=== PATIENT | female | born 1965 | race Caucasian/White ===

== ENCOUNTER 2020-07-26 22:58 | Emergency (ER) | payer MEDICARE, SELFPAY ==
--- NOTE | ~2020-07-26 | XR_ITS ---
EXAMINATION: XR toe 2nd RT min 2V EXAM DATE: 07/26/2020 23:34 INDICATION: Initial encounter following injury, with pain of the right 2nd toe. TECHNIQUE: Right 2nd toe frontal, lateral and oblique projections obtained and reviewed. There is no prior study for comparison. FINDINGS: There are no acute right 2nd toe fractures or dislocations identified. There is no subcuta neous gas. The soft tissue is unremarkable. There are no radiopaque foreign bodies. 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 IMPRESSION: No acute osseous findings. Reviewed, dictated and finalized at location A. IMPRESSION: No acute osseous findings.
[2020-07-26 23:08] VITALS: BP 132/82; PULSE 75; RESP 20; TEMP 36.5; O2SAT 100
--- NOTE | 2020-07-26 23:26 | PC.NURSE ---
Patient taken to xray at this time.
--- NOTE | 2020-07-26 23:36 | ED.GENADULT ---
HPI - General Adult General Chief complaint: Extremity Problem,Nontraumatic Stated complaint: fall Time Seen by Provider: 07/26/20 23:25 Source: RN notes reviewed History of Present Illness HPI narrative: Patient presents emergency department from home for right second toe pain. Patient states approximately 6 PM she was walking in flip-flops when she slipped and stubbed her toe into the concrete states that she initially got home and gone to sleep and when she awoken she had increased pain in the toe states pain is located in the mid second toe she denies any other trauma or injury denies falling or striking her head states she is taking nothing for pain Related Data Home Medications Medication Instructions Recorded Confirmed Adult One Daily Multivitamin 02/19/19 Fish Oil 02/19/19 Vitamin D3 02/19/19 acyclovir 02/19/19 albuterol sulfate [ProAir HFA] INHALATION 02/19/19 alprazolam 02/19/19 amitriptyline 02/19/19 aspirin 81 mg DAILY 02/19/19 02/19/19 atenolol 02/19/19 cyclobenzaprine mg 02/19/19 cyproheptadine 02/19/19 famotidine 02/19/19 hydrochlorothiazide 02/19/19 lisinopril 02/19/19 mecobalamin (vitamin B12) 02/19/19 mycophenolate sodium PO 02/19/19 prednisone 02/19/19 simvastatin mg 02/19/19 tacrolimus [Envarsus XR] PO 02/19/19 zolpidem PO 02/19/19 Allergies Allergy/AdvReac Type Severity Reaction Status Date / Time aspirin Allergy Mild Unknown Verified 07/26/20 23:19 morphine Allergy Unknown Unknown Verified 07/26/20 23:19 Sulfa (Sulfonamide Allergy Unknown Unknown Verified 07/26/20 23:19 Antibiotics) hydromorphone AdvReac Mild VOMITING Verified 07/26/20 23:19 COLD WEATHER AdvReac Unknown URTICARIA Uncoded 02/19/19 14:34 Review of Systems Review of Systems: Narrative: Gen.: Denies fevers or chills Musculoskeletal: See HPI Neuro: Denies numbness, tingling, weakness Skin: Denies rash Endo: Denies DM PMFSH Surgical History Surgical History (Updated 07/26/20 @ 23:37 by Favio Mitchell DO) Kidney transplant status Social History Social History (Updated 07/26/20 @ 23:37 by Favio Mitchell DO) Smoking status: Never smoker Gender identity (if verbalized by the patient): Female Exam Narrative: Exam Narrative: APPEARANCE: No acute distress, nontoxic, resting in bed Eyes: EOMI HEENT: Normocephalic, atraumatic, RESPIRATORY: No respiratory distress MUSCULOSKELETAl: Turn palpation over the right second toe over the PIP joint mild swelling ecchymosis no tenderness of toes 1, 3, 4, and 5 no tenderness in any of the foot, dorsalis pedis pulse 2+ neurovascular intact capillary refill less than 3 seconds NEURO: Awake and alert. Following commands, speech normal, no focal deficits SKIN:: Warm, dry. Normal Color no rash or lesions Course Course Emergency Course: Discussed with patient results of workup and diagnosis. Discussed need for follow-up with primary care, proper use of medication, and reasons to return to the emergency department. Patient understands and agrees to current treatment plan Vital Signs Vital signs: Vital Signs Temperature 97.7 F 07/26/20 23:08 Pulse Rate 75 07/26/20 23:08 Respiratory Rate 07/26/20 23:08 Blood Pressure 132/82 07/26/20 23:08 Pulse Oximetry 100 07/26/20 23:08 Temperature 97.7 F 07/26/20 23:08 Pulse Rate 75 07/26/20 23:08 Respiratory Rate 07/26/20 23:08 Blood Pressure 132/82 07/26/20 23:08 Pulse Oximetry 100 07/26/20 23:08 Medical Decision Making Vital Signs Vital Signs: Vital Signs Temperature 97.7 F 07/26/20 23:08 Pulse Rate 75 07/26/20 23:08 Respiratory Rate 07/26/20 23:08 Blood Pressure 132/82 07/26/20 23:08 Pulse Oximetry 100 07/26/20 23:08 Temperature 97.7 F 07/26/20 23:08 Pulse Rate 75 07/26/20 23:08 Respiratory Rate 20 07/26/20 23:08 Blood Pressure 132/82 07/26/20 23:08 Pulse Oximetry 100 07/26/20 23:08 Imaging Data Attestatio
[2020-07-26] MEDS: ACETAMINOPHEN 500 MG TABLET 1000 MG PO (23:41)
== END 2020-07-26 23:52 | disposition home or self-care (01) ==
LOC: ANHED 23:48
PROVIDERS: Emergency Provider Emergency Medicine
DX: S93.504A Unspecified sprain of right lesser toe(s), initial encounter (principal); Z79.82 Long term (current) use of aspirin; Z94.0 Kidney transplant status; W22.8XXA Striking against or struck by other objects, initial encounter
CPT/HCPCS: 73660; 99283; A9270

== ENCOUNTER 2021-10-04 13:28 | Emergency (ER) | payer MEDICARE, SELFPAY ==
--- NOTE | ~2021-10-04 | XR_ITS ---
XR foot RT min 3V 10/04/2021 15:17 Indication: Right foot pain after injury Procedure: 4 views right foot Comparison: No prior studies for comparison. Findings: There are avulsion fractures involving the lateral margin of the calcaneus and the proximal aspect of the fifth metatarsal. Mild soft tissue swelling. Lisfranc joint intact. No other fracture. Impression: 1: Minimally displaced avulsion fractures lateral margin of the calcaneus and the proximal aspect of the fifth metatarsal. Reviewed, dictated and finalized at location A. Impression: 1: Minimally displaced avulsion fractures lateral margin of the calcaneus and t he proximal aspect of the fifth metatarsal.
--- NOTE | ~2021-10-04 | XR_ITS ---
XR ankle RT min 3V 10/04/2021 15:18 Indication: Right ankle pain after injury Procedure: 4 views right ankle Comparison: No prior studies for comparison. Findings: There is an avulsion fracture with soft tissue swelling along the lateral aspect of the anupam t on AP view, possibly originating from the calcaneus or cuboid. Ankle mortise intact. There are dege nerative calcaneal enthesophytes. Impression: 1: Avulsion fracture lateral aspect of the right foot, possibly originating from the calcaneus or cub oid. Reviewed, dictated and finalized at location A. Impression: 1: Avulsion fracture lateral aspect of the right foot, possibly originating fro m the calcaneus or cuboid.
--- NOTE | 2021-10-04 13:37 | ED.LOWEXIN ---
HPI - Extremity Injury (Lower) General Chief Complaint: Extremity Injury, Lower <Mason Andino APRN - Last Filed: 10/04/21 16:27> Stated Complaint: rt foot pain <Mason Andino APRN - Last Filed: 10/04/21 16:27> Time Seen by Provider: 10/04/21 14:10 <Mason Andino APRN - Last Filed: 10/04/21 16:27> Source: patient <Mason Andino APRN - Last Filed: 10/04/21 16:27> Mode of arrival: ambulatory <Mason Andino APRN - Last Filed: 10/04/21 16:27> Limitations: no limitations <Mason Andino APRN - Last Filed: 10/04/21 16:27> History of Present Illness HPI Narrative: Ms. Adair is a 56-year-old female patient presenting to the clinic today with complaints of right foot and ankle pain since 0100 this morning. She reports that she got up out of bed quickly and ended up inverting her right ankle/foot has bruising and swelling to the right ankle and foot. Reports that it is very painful to bear weight. <Mason Andino APRN - Last Filed: 10/04/21 16:27> Related Data Home Medications: Home Medications Medication Instructions Recorded Confirmed Adult One Daily Multivitamin 02/19/19 Fish Oil 02/19/19 Vitamin D3 02/19/19 acyclovir 200 mg capsule 02/19/19 albuterol sulfate 90 mcg/actuation inhalation 02/19/19 aerosol inhaler (ProAir HFA) alprazolam 0.5 mg tablet 02/19/19 amitriptyline 25 mg tablet 02/19/19 aspirin 81 mg DAILY 02/19/19 02/19/19 atenolol 50 mg tablet 02/19/19 cyclobenzaprine 10 mg tablet mg 02/19/19 cyproheptadine 4 mg tablet 02/19/19 famotidine 20 mg tablet 02/19/19 hydrochlorothiazide 12.5 mg tablet 02/19/19 lisinopril 5 mg tablet 12/30/19 mecobalamin (vitamin B12) 02/19/19 mycophenolate sodium 360 mg PO 02/19/19 tablet,delayed release prednisone 2.5 mg tablet 02/19/19 simvastatin 40 mg tablet mg 02/19/19 tacrolimus 1 mg tablet,extended PO 02/19/19 release 24 hr (Envarsus XR) zolpidem 12.5 mg tablet,extended PO 02/19/19 release,multiphase allopurinol 300 mg tablet mg 10/04/21 gabapentin 300 mg capsule mg 10/04/21 <Mason Andino APRN - Last Filed: 10/04/21 16:27> Allergies/Adverse Reactions: Allergies Allergy/AdvReac Type Severity Reaction Status Date / Time aspirin Allergy Mild Unknown Verified 08/20/21 13:41 morphine Allergy Unknown Unknown Verified 08/20/21 13:41 Sulfa (Sulfonamide Allergy Unknown Unknown Verified 08/20/21 13:41 Antibiotics) hydromorphone AdvReac Mild VOMITING Verified 08/20/21 13:41 COLD WEATHER AdvReac Unknown URTICARIA Uncoded 08/20/21 13:41 <Mason Andino APRN - Last Filed: 10/04/21 16:27> Review of Systems Review of Systems: Pertinent positives per HPI. Patient denies any fever, chills, rash, headache, visual changes, dizziness, cough, runny nose, sore throat, shortness of breath, chest pain, palpitations, nausea, vomiting, diarrhea, constipation, abdominal pain, or any urinary issues. <Mason Andino APRN - Last Filed: 10/04/21 16:27> [facility] Surgical History Surgical History: Surgical History Kidney transplant status <Mason Andino APRN - Last Filed: 10/04/21 16:27> Social History Social History: Social History Smoking status: Never smoker Gender identity (if verbalized by the patient): Female <Mason Andino APRN - Last Filed: 10/04/21 16:27> Comments At the time of my signature, I reviewed and agree with the nursing past medical, surgical, social, and family history. There is no relevant family history pertinent to the patient complaint. <Mason Andino, CARLEY - Last Filed: 10/04/21 16:27> Exam Narrative: General: Well-developed, well nourished, in no apparent distress Head: Normocephalic, atraumatic. Cardio: Regular r
[2021-10-04 14:06] VITALS: BP 142/79; PULSE 61; RESP 16; TEMP 36.6; O2SAT 100
== END 2021-10-04 16:15 | disposition home or self-care (01) ==
PROVIDERS: Emergency Provider Nurse Practitioner Family
DX: S92.351A Displaced fracture of fifth metatarsal bone, right foot, initial encounter for closed fracture (principal); X50.9XXA Other and unspecified overexertion or strenuous movements or postures, initial encounter; Z94.0 Kidney transplant status; E78.00 Pure hypercholesterolemia, unspecified; I10 Essential (primary) hypertension; K21.9 Gastro-esophageal reflux disease without esophagitis; M10.9 Gout, unspecified; N80.9 Endometriosis, unspecified; M35.9 Systemic involvement of connective tissue, unspecified; Z85.828 Personal history of other malignant neoplasm of skin
CPT/HCPCS: 29515; 73610; 73630; 99214; G0463

== ENCOUNTER 2022-04-26 17:50 | Emergency (ER) | payer MEDICARE, SELFPAY ==
--- NOTE | ~2022-04-26 | XR_ITS ---
EXAM: XR ankle RT min 3V DATE: 04/26/2022 18:22 HISTORY: LATERAL ANKLE PAIN AFTER INJURY . COMPARISON: 10/04/2021. FINDINGS: Normal mineralization. No fracture or dislocation. No lytic or blastic lesion. Scattered d egenerative changes. Achilles and plantar enthesopathy. No erosion or periosteal change. Soft tissues within normal limits. IMPRESSION: No acute osseous finding in the right ankle. Reviewed, dictated and finalized at location K. [employer]ATE ASSISTANT ATHLETIC TRAINER
--- NOTE | 2022-04-26 17:56 | ED.SKABFB ---
HPI - Skin/Abscess/Foreign Bdy General Stated complaint: Right Foot Pain Related Data Home Medications Medication Instructions Recorded Confirmed Adult One Daily Multivitamin 02/19/19 12/17/21 Fish Oil 02/19/19 12/17/21 Vitamin D3 02/19/19 12/17/21 acyclovir 200 mg capsule 02/19/19 12/17/21 albuterol sulfate 90 mcg/actuation inhalation 02/19/19 12/17/21 aerosol inhaler (ProAir HFA) alprazolam 0.5 mg tablet 02/19/19 12/17/21 amitriptyline 25 mg tablet 02/19/19 12/17/21 aspirin 81 mg DAILY 02/19/19 12/17/21 atenolol 50 mg tablet 02/19/19 12/17/21 cyclobenzaprine 10 mg tablet mg 02/19/19 12/17/21 cyproheptadine 4 mg tablet 02/19/19 12/17/21 famotidine 20 mg tablet 02/19/19 12/17/21 hydrochlorothiazide 12.5 mg tablet 02/19/19 12/17/21 lisinopril 5 mg tablet 02/19/19 12/17/21 mecobalamin (vitamin B12) 02/19/19 12/17/21 mycophenolate sodium 360 mg PO 02/19/19 12/17/21 tablet,delayed release prednisone 2.5 mg tablet 02/19/19 12/17/21 simvastatin 40 mg tablet mg 02/19/19 12/17/21 tacrolimus 1 mg tablet,extended PO 02/19/19 12/17/21 release 24 hr (Envarsus XR) zolpidem 12.5 mg tablet,extended PO 02/19/19 12/17/21 release,multiphase allopurinol 300 mg tablet mg 10/04/21 12/17/21 gabapentin 300 mg capsule mg 10/04/21 12/17/21 Allergies Allergy/AdvReac Type Severity Reaction Status Date / Time aspirin Allergy Mild Unknown Verified 10/12/21 15:46 morphine Allergy Unknown Unknown Verified 10/12/21 15:46 Sulfa (Sulfonamide Allergy Unknown Unknown Verified 10/12/21 15:46 Antibiotics) hydromorphone AdvReac Mild VOMITING Verified 10/12/21 15:46 COLD WEATHER AdvReac Unknown URTICARIA Uncoded 10/12/21 15:46 [facility] Surgical History Surgical History Kidney transplant status Social History Social History Smoking status: Never smoker Gender identity (if verbalized by the patient): Female Discharge Plan Discharge Prescriptions: No Action gabapentin 300 mg capsule allopurinol 300 mg tablet acetaminophen-codeine 300-15 mg tablet 1 tablet PO Q8H PRN (Reason: pain) 4 Days Qty: 12 0RF Adult One Daily Multivitamin cyclobenzaprine 10 mg tablet simvastatin 40 mg tablet cyproheptadine 4 mg tablet alprazolam 0.5 mg tablet famotidine 20 mg tablet amitriptyline 25 mg tablet prednisone 2.5 mg tablet lisinopril 5 mg tablet acyclovir 200 mg capsule albuterol sulfate [ProAir HFA] 90 mcg/actuation HFA aerosol inhaler INHALATION atenolol 50 mg tablet mycophenolate sodium 360 mg tablet,delayed release (DR/EC) PO zolpidem 12.5 mg tablet,ext release multiphase PO hydrochlorothiazide 12.5 mg tablet Envarsus XR 1 mg tablet extended release 24 hr PO Fish Oil Vitamin D3 aspirin 81 mg 81 mg DAILY mecobalamin (vitamin B12) Follow-up/Referrals: PHYSICIAN,PEELER OPERATOR [Primary Care Provider] -
--- NOTE | 2022-04-26 17:59 | ED.LOWEXIN ---
HPI - Extremity Injury (Lower) General Chief Complaint: Extremity Injury, Lower Stated Complaint: Right Foot Pain Time Seen by Provider: 04/26/22 18:00 Source: patient, RN notes reviewed and old records reviewed Mode of arrival: ambulatory Limitations: no limitations History of Present Illness HPI Narrative: 56-year-old female presents to the [facility] with right lateral ankle pain since last night. No bruising or swelling noted. Patient states that she was walking and rolled her ankle in firstly. History of a kidney transplant and cannot take ibuprofen so she has taken Tylenol. Onset (ago): day(s) (1) Related Data Home Medications Medication Instructions Recorded Confirmed acyclovir 200 mg capsule 200 mg PO DAILY 02/19/19 04/26/22 albuterol sulfate 90 mcg/actuation 2 puff inhalation PRN PRN SOB 02/19/19 04/26/22 aerosol inhaler (ProAir HFA) alprazolam 0.5 mg tablet 0.5 mg PO DAILY 02/19/19 04/26/22 amitriptyline 25 mg tablet 25 mg PO DAILY 02/19/19 04/26/22 atenolol 50 mg tablet 50 mg PO DAILY 02/19/19 04/26/22 cyclobenzaprine 10 mg tablet 10 mg PO DAILY 02/19/19 04/26/22 cyproheptadine 4 mg tablet 4 mg PO DAILY 02/19/19 04/26/22 famotidine 20 mg tablet 20 mg PO DAILY 02/19/19 04/26/22 hydrochlorothiazide 12.5 mg tablet 12.5 mg PO DAILY 02/19/19 04/26/22 lisinopril 5 mg tablet 5 mg PO DAILY 02/19/19 04/26/22 mycophenolate sodium 360 mg 360 mg PO DAILY 02/19/19 04/26/22 tablet,delayed release prednisone 2.5 mg tablet 2.5 mg PO DAILY 02/19/19 04/26/22 simvastatin 40 mg tablet 40 mg PO DAILY 02/19/19 04/26/22 tacrolimus 1 mg tablet,extended 1 mg PO DAILY 02/19/19 04/26/22 release 24 hr (Envarsus XR) zolpidem 12.5 mg tablet,extended 12.5 mg PO DAILY 02/19/19 04/26/22 release,multiphase allopurinol 300 mg tablet 300 mg PO DAILY 10/04/21 04/26/22 Allergies Allergy/AdvReac Type Severity Reaction Status Date / Time aspirin Allergy Mild Unknown Verified 04/26/22 17:59 morphine Allergy Unknown Unknown Verified 04/26/22 17:59 Sulfa (Sulfonamide Allergy Unknown Unknown Verified 04/26/22 17:59 Antibiotics) hydromorphone AdvReac Mild VOMITING Verified 04/26/22 17:59 COLD WEATHER AdvReac Unknown URTICARIA Uncoded 04/26/22 17:59 Review of Systems Review of Systems: All systems reviewed & are unremarkable except as noted in HPI and below Constitutional: Constitutional: Reports no additional constitutional complaints Eyes: Eyes: Reports no additional eye complaints ENT: Reports system reviewed and no additional complaints, except as documented Cardiovascular: Cardiovascular: Reports no additional cardiovascular complaints, Denies chest pain and Denies dyspnea Respiratory: Respiratory: Reports no additional respiratory complaints, Denies chest congestion, Denies cough and Denies dyspnea Gastrointestinal: Gastrointestinal: Reports no additional gastrointestinal complaints, Denies abdominal pain, Denies nausea and Denies vomiting Musculoskeletal: Musculoskeletal: Reports as per HPI and Reports arthralgias (Right lateral ankle) Integumentary/Breasts: Skin/Breast: Reports system reviewed and no additional complaints, except as docu Neurologic: Reports system reviewed and no additional complaints, except as documented Psychiatric: Psychiatric: Reports no additional psychiatric complaints Allergic/Immunologic: Allergic/Immunologic: Reports no additional allergic/immunologic complaints [facility] Surgical History Surgical History Kidney transplant status Social History Social History Smoking status: Never smoker Gender identity (if verbalized by the patient): Female Comments At the time of my signature, I reviewed and agree with the nursing past medical, surgical, social, and family history. There is no relevant family history pertinent to the patient complaint. Exam Const: General: cooperative, healthy
[2022-04-26 18:00] VITALS: BP 155/89; PULSE 85; RESP 14; TEMP 36.8; O2SAT 100
[2022-04-26 18:02] VITALS: BP 155/89; PULSE 85; RESP 14; TEMP 36.8; O2SAT 100
== END 2022-04-26 19:10 | disposition home or self-care (01) ==
PROVIDERS: Emergency Provider Nurse Practitioner
DX: S93.401A Sprain of unspecified ligament of right ankle, initial encounter (principal); X50.0XXA Overexertion from strenuous movement or load, initial encounter
CPT/HCPCS: 73610; 99213; G0463

== ENCOUNTER 2022-05-22 17:02 | Emergency (ER) | payer MEDICARE, SELFPAY ==
[2022-05-22 17:13] VITALS: BP 128/77; PULSE 72; RESP 16; TEMP 36.9; O2SAT 99
[2022-05-22 17:14] VITALS: BP 128/77; PULSE 72; RESP 16; TEMP 36.9; O2SAT 99
--- NOTE | 2022-05-22 17:40 | ED.UPPEXIN ---
HPI - Extremity Injury (Upper) General Chief Complaint: Extremity Injury, Upper Stated Complaint: Left Hand Pain Source: patient and RN notes reviewed History of Present Illness HPI narrative: 56-year-old male presents to urgent care with complaints of a splinter to her left middle finger tip. Patient states she obtained this prior to arrival while cleaning out a hoarder's house. Patient states they tried removing the splinter for approximately 30 minutes without relief. Patient states she believes her tetanus is up-to-date. Patient has no other complaints. Some parts of this dictation were generated by voice recognition software and may contain typographical and/or grammatical inaccuracies. Related Data Home Medications Medication Instructions Recorded Confirmed acyclovir 200 mg capsule 200 mg PO DAILY 02/19/19 05/22/22 albuterol sulfate 90 mcg/actuation 2 puff inhalation PRN PRN SOB 02/19/19 05/22/22 aerosol inhaler (ProAir HFA) alprazolam 0.5 mg tablet 0.5 mg PO DAILY 02/19/19 05/22/22 amitriptyline 25 mg tablet 25 mg PO DAILY 02/19/19 05/22/22 atenolol 50 mg tablet 50 mg PO DAILY 02/19/19 05/22/22 cyclobenzaprine 10 mg tablet 10 mg PO DAILY 02/19/19 05/22/22 cyproheptadine 4 mg tablet 4 mg PO DAILY 02/19/19 05/22/22 famotidine 20 mg tablet 20 mg PO DAILY 02/19/19 05/22/22 hydrochlorothiazide 12.5 mg tablet 12.5 mg PO DAILY 02/19/19 05/22/22 lisinopril 5 mg tablet 5 mg PO DAILY 02/19/19 05/22/22 mycophenolate sodium 360 mg 360 mg PO DAILY 02/19/19 05/22/22 tablet,delayed release prednisone 2.5 mg tablet 2.5 mg PO DAILY 02/19/19 05/22/22 simvastatin 40 mg tablet 40 mg PO DAILY 02/19/19 05/22/22 tacrolimus 1 mg tablet,extended 1 mg PO DAILY 02/19/19 05/22/22 release 24 hr (Envarsus XR) zolpidem 12.5 mg tablet,extended 12.5 mg PO DAILY 02/19/19 05/22/22 release,multiphase allopurinol 300 mg tablet 300 mg PO DAILY 10/04/21 05/22/22 Allergies Allergy/AdvReac Type Severity Reaction Status Date / Time aspirin Allergy Mild Unknown Verified 05/22/22 17:13 morphine Allergy Unknown Unknown Verified 05/22/22 17:13 Sulfa (Sulfonamide Allergy Unknown Unknown Verified 05/22/22 17:13 Antibiotics) hydromorphone AdvReac Mild VOMITING Verified 05/22/22 17:13 COLD WEATHER AdvReac Unknown URTICARIA Uncoded 05/22/22 17:13 Review of Systems Review of Systems: CONSTITUTIONAL: Denies fever, chills, or sweats. EYES: Denies visual changes, redness, or discharge. ENT: Denies otalgia and sore throat CARDIOVASCULAR: Denies chest pain, palpitations, or edema. RESPIRATORY: Denies cough or dyspnea. GASTROINTESTINAL: Denies abdominal pain, nausea, vomiting, or diarrhea. GENITOURINARY: Denies dysuria or hematuria. SKIN: Splinter in the left middle fingertip MUSCULOSKELETAL: Denies back pain, joint pain, or myalgia. NEUROLOGIC: Denies headache, numbness, or weakness. Pertinent positives per HPI. PMFSH Surgical History Surgical History Kidney transplant status Social History Social History Smoking status: Never smoker Gender identity (if verbalized by the patient): Female Comments At the time of my signature, I reviewed and agree with the nursing past medical, surgical, social, and family history. There is no relevant family history pertinent to the patient complaint. Exam Narrative: GENERAL: This is a well-nourished, well-developed patient, in no apparent distress. HEAD: normocephalic, atraumatic. EYES: PERRL. Sclera clear/white. Vision is grossly intact. EARS: External ears normal, auditory canals clear and without drainage, TMs normal without perforation. Hearing grossly intact. NOSE: External nose normal with no obvious nasal discharge, nares without redness, no rhinorrhea. THROAT: Mucous membranes moist, posterior pharynx clear. NECK: Neck supple, non-tender without lymphadenopathy, masses or thyrome
== END 2022-05-22 18:36 | disposition home or self-care (01) ==
PROVIDERS: Emergency Provider Nurse Practitioner Family
DX: S60.453A Superficial foreign body of left middle finger, initial encounter (principal); W45.8XXA Other foreign body or object entering through skin, initial encounter
CPT/HCPCS: 99213; G0463